=== PATIENT | male | born 1985 | race Caucasian/White ===

== ENCOUNTER → 2017-05-02 | Outpatient (REF) | LOC: M LAB 10:01 | PROVIDERS: ATTEND Nurse Practitioner Adult Health | DX: Z02.9 Encounter for administrative examinations, unspecified (principal) ==

== ENCOUNTER → 2018-05-06 | Outpatient (REF) ==
[2018-05-06 18:20] LABS: HEP C VIRUS AB INDEX SOURCE PT 0.2 INDEX (0.0-0.8)
[2018-05-06 18:20] LABS: HEPATITIS B SURFACE ANTIGEN NEGATIVE (NEGATIVE); HIV SCREEN CENTAUR SOURCE NEGATIVE (NEGATIVE)
== END ==
LOC: M LAB 14:50
DX: Z00.00 Encounter for general adult medical examination without abnormal findings (principal)

== ENCOUNTER → 2021-11-14 | Outpatient (REF) ==
[2021-11-14 10:11] LABS: RSV AMPLIFICATION NEGATIVE (NEGATIVE)
== END ==
LOC: M EMP 08:42
PROVIDERS: ATTEND Family Medicine
DX: Z11.52 Encounter for screening for COVID-19 (principal)

== ENCOUNTER 2022-08-30 00:23 | Emergency (ER) | payer SELFPAY ==
[~2022-08-30] VITALS: Ht 177.8 cm; Wt 75.5 kg
[2022-08-30] MEDS ORDERED: CLIN-30 PO (03:13)
[2022-08-30] MEDS ORDERED: CLEO300C2 PO (03:13)
[2022-08-30] MEDS ORDERED: TRAM50TA2 PO (03:17)
[2022-08-30] MEDS ORDERED: traMADol 50 MG TAB PO ONE (03:25)
[2022-08-30] MEDS ORDERED: CLINDAMYCIN 150MG CAPSULE PO ONE (03:25)
[2022-08-30 03:36] VITALS: BP 151/88
== END 2022-08-30 03:38 | disposition home or self-care (01) ==
LOC: M ED 00:23
DX: K04.7 Periapical abscess without sinus (principal); K08.89 Other specified disorders of teeth and supporting structures; Z88.0 Allergy status to penicillin

== ENCOUNTER → 2023-03-18 | Outpatient (REF) ==
[~2023-03-18] MED LIST: CLEO300C2 PO; CLIN-30 PO; TRAM50TA2 PO
== END ==
LOC: M EMP 10:48
PROVIDERS: ATTEND Family Medicine
DX: Z11.52 Encounter for screening for COVID-19 (principal)

== ENCOUNTER → 2023-09-04 | Outpatient (REF) | LOC: M EMP 11:38 | PROVIDERS: ATTEND Family Medicine | DX: Z11.52 Encounter for screening for COVID-19 (principal) ==

== ENCOUNTER 2023-09-10 11:23 | Emergency (ER) | payer SELFPAY ==
[~2023-09-10] VITALS: Ht 177.8 cm; Wt 80.4 kg
[2023-09-10] MEDS ORDERED: BACI28.417 TOP (15:15)
[2023-09-10 15:32] VITALS: BP 131/82; TEMP 97.2; O2SAT 97
== END 2023-09-10 15:33 | disposition home or self-care (01) ==
LOC: M ED 11:23
DX: S80.212A Abrasion, left knee, initial encounter (principal); Y92.410 Unspecified street and highway as the place of occurrence of the external cause; Y93.55 Activity, bike riding; Y99.9 Unspecified external cause status; W00.0XXA Fall on same level due to ice and snow, initial encounter; Z88.0 Allergy status to penicillin; Z88.1 Allergy status to other antibiotic agents; Z79.2 Long term (current) use of antibiotics

== ENCOUNTER 2023-09-15 10:41 | Emergency (ER) | payer SELFPAY ==
[~2023-09-15] VITALS: Ht 177.8 cm; Wt 75.0 kg
[~2023-09-15 10:41] MED LIST changes: +BACI28.417 TOP
[2023-09-15 10:59] VITALS: BP 134/76; TEMP 96.1; O2SAT 98
[2023-09-15] MEDS ORDERED: [UNRECOGNIZED DRUG - CODE] XX (14:36)
[2023-09-15] MEDS: BACITRACIN OINTMENT 30GM TUBE TOP ONE (14:48)
== END 2023-09-15 14:57 | disposition home or self-care (01) ==
LOC: M ED 10:41
DX: S80.212D Abrasion, left knee, subsequent encounter (principal); W00.9XXD Unspecified fall due to ice and snow, subsequent encounter; Y92.89 Other specified places as the place of occurrence of the external cause; Z88.0 Allergy status to penicillin; F17.290 Nicotine dependence, other tobacco product, uncomplicated